=== PATIENT | male | born 1950 | race Two or more races ===

== ENCOUNTER 2020-09-03 16:38 | Outpatient (CLI) | payer OTHER | END 2020-09-03 16:40 | disposition home or self-care (01) | LOC: OFIC 805 16:38 | PROVIDERS: ATTEND Otolaryngology | DX: L29.8 Other pruritus (principal); H61.23 Impacted cerumen, bilateral ==

== ENCOUNTER 2021-10-21 15:44 | Outpatient (CLI) | payer OTHER | END 2021-10-21 15:48 | disposition home or self-care (01) | LOC: LAB 15:44 | PROVIDERS: ATTEND Urology | DX: R97.20 Elevated prostate specific antigen [PSA] (principal) ==